=== PATIENT | male | born 2000 | race Two or more races ===

== ENCOUNTER 2020-05-16 09:59 | Emergency (ER) | payer OTHER, SELFPAY ==
[2020-05-16 10:06] VITALS: BP 140/80; PULSE 88; RESP 18; TEMP 36.9; O2SAT 100; BMI 24.2
--- NOTE | 2020-05-16 11:13 | ED.HA ---
HPI - Headache General Chief Complaint: Headache Stated Complaint: sinus pressure Time Seen by Provider: 05/16/20 11:13 History of Present Illness HPI Narrative: Patient complains of headache coming going for several days, it was gradual in onset he is not aware of the exact moment it started it is associated with nasal congestion, body aches, fatigue, nurse's note stated vision changes but when I talked to the patient he said he has had no loss of vision no double vision no change of vision The headache is a frontal headache that is causing mild pain in his eyes and very mild photophobia Related Data Previous Rx's Medication Instructions Recorded ibuprofen 600 mg PO Q6H PRN #20 tab 05/16/20 Allergies Allergy/AdvReac Type Severity Reaction Status Date / Time No Known Allergies Allergy Verified 05/16/20 10:09 Review of Systems Review of Systems: Positive for headache with mild photophobia, nasal congestion, body aches and fatigue Negatives are no fever no chills no dizziness no weakness no confusion no numbness no vision loss no double vision, not abrupt onset, no trauma or injury no stiff neck no neck pain, no chest pain no cough no shortness of breath no abdominal pain no nausea or vomiting no rash PMFSH Past Medical History Source: nursing notes reviewed Social History Social History Advance Directives: Yes Advance Directives Information Provided: Yes Advance Directives on File: No Physical Exam Vital Signs: Vital Signs: Last Vital Signs Temp 98.4 F 05/16/20 10:06 Pulse 88 05/16/20 10:06 Resp 18 05/16/20 10:06 BP 140/80 H 05/16/20 10:06 Pulse Ox 100 05/16/20 10:06 Body Mass Index 24.2 General appearance is no acute distress relaxed and cooperative The ears are clear The eyes no redness no discharge visual acuity is 2020 bilaterally, no obvious photophobia, pupils equal round reactive to light and extraocular motions are intact The nose there is no sinus tenderness but there appears to be mild congestion The pharynx is clear and well hydrated The neck is supple The chest is clear to auscultation bilaterally with full symmetric equal breath sounds Heart rate and rhythm regular no murmur Abdomen soft nontender Extremities full range of motion x4 Neuro interaction and comprehension are normal, gait and balance are normal, motor is 5/5 x4, is sensation is intact and symmetrical, there is no facial asymmetry, cranial nerves exam is normal as tested, cerebellar was normal Course Course Course Narrative: Patient's COVID test was negative Patient with symptoms of headache for several days of a gradual onset associated with body aches nasal congestion and fatigue It was discussed with the patient of the low risk of radiation from a CT scan versus waiting to see if the headache resolves as it is most likely from a viral illness given the associated symptoms and decision was made no imaging today and patient was discharged to follow with his doctor Differential diagnosis considered included subarachnoid viral illness migraine tension headache COVID sinusitis MDM - Headache Lab Data Labs: Lab Results 05/16/20 Range/Units 11:18 COVID-19 ([facility]) Negative (Negative) COVID-19 Clin Com See Note Discharge Plan Discharge Clinical Impression: Headache Qualifiers: Headache type: unspecified Headache chronicity pattern: unspecified pattern Intractability: not intractable Qualified Code(s): R51.9 - Headache, unspecified Patient Disposition: Home, Self-Care Additional Instructions: Your COVID test was negative The headache is not concerning at this time and could be from a viral illness Follow with primary doctor, at this time we did not do any imaging, which can be ordered at a later date if needed if headache does not resolve Return any time for worsening headache any worse condition any concerns You can try Afrin spray decongestant as there has been some associated congestion and see if that helps You can use Tylenol as well as Motrin if needed Prescriptions: New ibuprofen 600 mg tablet 600 mg PO Q6H PRN (Reason: pain) Qty: 20 RF: 0 Interventions: ED Discharge Assessment Last Done: 05/16/20 12:10 Discharge Date/Time: 05/16/20 12:13
[2020-05-16 11:45] LABS: COVID-19 Test Negative (Negative); IDNOW Serial# 9DD0AD1C
== END 2020-05-16 12:13 | disposition home or self-care (01) ==
PROVIDERS: Physician Assistant Medical; Emergency Provider Emergency Medicine
DX: R51.9 Headache, unspecified (principal); Z20.822 Contact with and (suspected) exposure to COVID-19
CPT/HCPCS: 36415; 87635; 96374; 99283; 99284

== ENCOUNTER 2022-04-21 14:54 | Emergency (ER) | payer OTHER, SELFPAY ==
--- NOTE | 2022-04-21 15:02 | ED_ITS ---
HPI - Male Genitourinary General Stated complaint: med refill Time Seen by Provider: 04/21/22 15:02 Source: patient Mode of arrival: ambulatory Limitations: no limitations History of Present Illness HPI Narrative: This is a 22-year-old male who is here seeking STD treatment. Patient reports he was seen at [facility] and had STI testing done. He was informed that his test was positive for chlamydia and he is here for treatment. Patient reports symptoms of dysuria. No testicular pain, penile discharge, vomiting or fever Related Data Previous Rx's Medication Instructions Recorded ibuprofen 600 mg tablet 600 mg PO Q6H PRN pain #20 tabs 05/16/20 Allergies Allergy/AdvReac Type Severity Reaction Status Date / Time No Known Allergies Allergy Verified 05/16/20 10:09 Review of Systems Review of Systems: Yes all other systems are reviewed and are negative Constitutional: Constitutional: Reports no additional constitutional complaints, Denies body ache(s), Denies chills, Denies fever(s), Denies headache(s) and Denies weakness Eyes: Eyes: Reports no additional eye complaints and Denies change in vision ENT: Reports system reviewed and no additional complaints, except as documented, Denies dizziness, Denies headache(s), Denies nasal congestion, Denies nasal discharge and Denies neck pain Cardiovascular: Cardiovascular: Reports no additional cardiovascular complaints, Denies chest pain, Denies leg edema and Denies dyspnea Respiratory: Respiratory: Reports no additional respiratory complaints, Denies cough and Denies dyspnea Gastrointestinal: Gastrointestinal: Reports no additional gastrointestinal complaints, Denies abdominal pain, Denies diarrhea, Denies nausea and Denies vomiting Genitourinary: Genitourinary: Reports dysuria, Denies penile discharge, Denies testicular pain, Denies urinary frequency, Denies urinary hesitancy and Denies urinary incontinence Musculoskeletal: Musculoskeletal: Reports no additional musculoskeletal complaints, Denies back pain, Denies arthralgias, Denies joint swelling, Denies neck pain, Denies numbness and Denies tingling Integumentary/Breasts: Skin/Breast: Reports system reviewed and no additional complaints, except as docu and Denies rash Neurologic: Reports system reviewed and no additional complaints, except as documented, Denies dizziness, Denies headache(s), Denies numbness, Denies tingling and Denies weakness [facility] Past Medical History Attestation statement: The following information was validated with the patient. Source: old records reviewed and nursing notes reviewed Social History Social History Advance Directives: No Advance Directives Information Provided: No Physical Exam Const: General: cooperative, healthy appearing, comfortable and no acute distress Orientation/consciousness: patient oriented x3 Limitations: no limitations HEENT: Head: Yes normal to inspection Ears: hearing grossly normal bilaterally Eyes: General: appearance normal, both eyes and all related structures Neck: Neck: Yes normal visual inspection Resp: Effort & Inspection: normal respiratory effort Skin: General skin exam: no rashes or lesions noted Neuro: General: patient oriented x3 and moves all extremities Cognition (Neuro): normal cognition Gait exam (Neuro): Normal gait present Medical Decision Making Medical Decision Making MDM Narrative: 22-year-old male here seeking treatment for chlamydia. Patient was tested at outside facility and was informed today that he was positive for chlamydia. His additional STI testing was negative. He has symptoms of dysuria only While I was examining the patient I did review his portal which shows is neg ative testing for HIV, gonorrhea and Trichomonas. He was positive for chlamydia. While he was being examined he received a message from his primary care that a prescription for doxycycline was sent to the pharmacy for him and he can pick this up. Patient had no additional concerns or questions and is comfortable with being discharged home with plan to warehouse picker the prescriptions sent in by his other provider. Differential Diagnosis Differential Diagnoses: The differential diagnosis associated with the presentation includes Chlamydia External Record Review External record reviewed: Prior outpatient labs (via patient portal on his phone through [facility]) Discharge Plan Discharge Clinical Impression: Chlamydia Patient Disposition: Home, Self-Care Additional Instructions: Take your medications as prescribed from her primary care Prescriptions: No Action ibuprofen 600 mg tablet 600 mg PO Q6H PRN (Reason: pain) Qty: 20 0RF Referrals: Physician,Unknown J [Primary Care Provider] -
[2022-04-21 15:09] VITALS: PULSE 86; RESP 16; TEMP 36.8; O2SAT 99; BMI 20.7
== END 2022-04-21 15:12 | disposition home or self-care (01) ==
PROVIDERS: Emergency Provider Emergency Medicine
DX: A56.8 Sexually transmitted chlamydial infection of other sites (principal)
CPT/HCPCS: 99282